=== PATIENT | male | born 1985 ===

== ENCOUNTER → 2018-02-18 | Outpatient (REF) | payer OTHER ==
[2018-02-18 10:38] LABS: PROGRESSIVE MOTILITY (a) 45 % (>=32); SEMEN APPEARANCE OPAQUE (OPAQUE); SEMEN VISCOSITY LIQUID (LIQUID); SEMEN VOLUME 6.4 ml (4.0-5.0); SPERM CONCENTRATION 26.4 M/ml (>=15.0); WBC CONCENTRATION <=1 M/ml (<=1 M/ml)
[2018-02-18 10:39] LABS: % NORMAL FORMS 11 % (>=4); IMMOTILITY 38 %; NON PROGRESSIVE MOTILITY (c) 17 %; SPERM# 168.7 M/Ejac (>=39); TOTAL FUNCTIONAL 18.8 M/Ejac.; TOTAL MOTILITY 62 % (>=40); TOTAL PROGRESSIVE SPERM 76.4 M/Ejac.
== END ==
LOC: M LAB REF 10:04
DX: N46.8 Other male infertility (principal)